=== PATIENT | female | born 1945 | race Caucasian/White ===

== ENCOUNTER 2017-09-08 12:35 | Observation (INO) | payer MEDICAID, OTHER ==
[~2017-09-08] VITALS: Ht 157.5 cm; Wt 47.3 kg
[2017-09-08 13:19] VITALS: BP 189/77
[2017-09-08] MEDS ORDERED: AMLO10TA2 PO (13:24)
[2017-09-08] MEDS ORDERED: ASPI-515 PO (13:24)
[2017-09-08] MEDS ORDERED: GEMF600T3 PO (13:24)
[2017-09-08] MEDS ORDERED: CILO50TA PO (13:24)
[2017-09-08] MEDS ORDERED: LOSA100T6 PO (13:24)
[2017-09-08] MEDS ORDERED: SERT100T5 PO (13:24)
[2017-09-08] MEDS ORDERED: CALC-183 PO (13:26)
[2017-09-08] MEDS ORDERED: NAPR220C2 PO (13:30)
[2017-09-08] MEDS ORDERED: DOCU-180 PO (13:30)
[2017-09-08] MEDS ORDERED: [UNRECOGNIZED DRUG - OTHER] (13:30)
[2017-09-08] MEDS ORDERED: CHOL200040 PO (13:30)
[2017-09-08] MEDS ORDERED: FEXO1TAB25 PO (13:30)
[2017-09-08] MEDS ORDERED: METO25TA35 PO (13:40)
[2017-09-08] MEDS ORDERED: FLUMAZENIL 0.1 MG/1 ML, 5ML ONE (14:39)
[2017-09-08] MEDS ORDERED: HEPARIN 1,000 UNITS/ML, 10ML ONE (14:39)
[2017-09-08] MEDS ORDERED: NITROGLYCERIN 5 MG/ML, 10ML ONE (14:39)
[2017-09-08] MEDS ORDERED: NALOXONE 1 MG/ML, 2ML ONE (14:39)
[2017-09-08] MEDS ORDERED: FENTANYL PF 100 MCG/2ML ONE ×2 (14:39)
[2017-09-08] MEDS ORDERED: MIDAZOLAM 1 MG/ML, 5ML ONE (14:39)
[2017-09-08] MEDS ORDERED: PROTAMINE SULFATE 10 MG/ML, 25ML ONE (14:39)
[2017-09-08] MEDS ORDERED: LIDOCAINE 2%, 20ML ONE (14:46)
[2017-09-08 14:51] LABS: HEMATOCRIT 36.2 % (34.6-47.8); HEMOGLOBIN 12.1 g/dL (11.7-16.4); WHITE BLOOD COUNT 8.2 x10^3/uL (3.4-10)
[2017-09-08 14:59] LABS: BLOOD UREA NITROGEN 26 mg/dL (7-18)
[2017-09-08] MEDS ORDERED: hydrALAzine 20 MG/ML, 1ML ONE (17:05)
[2017-09-08] MEDS ORDERED: HYDROcodone/APAP 5/325 TABLET PO PRN (18:00)
[2017-09-08] MEDS ORDERED: AMLODIPINE 5 MG TABLET PO PRN (18:00)
[2017-09-08] MEDS ORDERED: LOSARTAN 50MG TABLET PO PRN (18:00)
[2017-09-08] MEDS ORDERED: LACTATED RINGERS 1,000 ML IV ONE (18:00)
[2017-09-08] MEDS ORDERED: morphine SULFATE 10 MG/ML, 1ML IVPush PRN (18:00)
== END 2017-09-09 00:17 | disposition home or self-care (01) ==
LOC: OUT 12:35 → 4NOR 18:14 → OUT 23:18 → 4NOR 09-09 00:17 → OUT 09-09 00:17
DX: I70.213 Atherosclerosis of native arteries of extremities with intermittent claudication, bilateral legs (principal); I65.21 Occlusion and stenosis of right carotid artery; I73.9 Peripheral vascular disease, unspecified; F32.9 Major depressive disorder, single episode, unspecified; M19.90 Unspecified osteoarthritis, unspecified site; G45.8 Other transient cerebral ischemic attacks and related syndromes; I10 Essential (primary) hypertension; Z72.0 Tobacco use
CPT/HCPCS: 36215; 36415; 37221; 37223; 37246; 37252; 37253; 75625; 75716; 80048; 85025; C1725; C1753; C1760; C1769; C1876; G0378; J0360; J1644; J2250; J2720; J3010; J3490; J2310